=== PATIENT | female | born 1980 ===

== ENCOUNTER 2023-03-12 17:12 | Inpatient (IN) | payer BC ==
[~2023-03-12] VITALS: Ht 170.2 cm; Wt 90.9 kg
[2023-03-19] VITALS (39 sets, daily range): BP systolic 98–150; BP diastolic 53–88; PULSE 67–93; TEMP 98–98.6
[2023-03-19] MEDS ORDERED: PRENATAL (06:53)
[2023-03-19] MEDS ORDERED: PROTONIX 40MG T40 MG PO (06:53)
[2023-03-19] MEDS ORDERED: NATURAL IRON65 MG (06:54)
[2023-03-19 07:52] LABS: HEMATOCRIT 38.8 % (37.0-47.0); HEMOGLOBIN 13.2 g/dl (12.5-16.0); MEAN CELL VOLUME 86 fl (80.0-100.0); MEAN CORPUSCULAR HEMOGLOBIN 29 pg (27-31); MEAN CORPUSCULAR HGB CONC 34 g/dl (33.0-37.0); MEAN PLATELET VOLUME 10.1 fl (7.4-10.4); PLATELET COUNT 229 K/mm3 (130-400); RED BLOOD COUNT 4.53 M/mm3 (4.10-5.30); REDCELL DISTRIBUTION WIDTH-CV 15.6 % (11.5-14.5)
[2023-03-19 08:39] LABS: ANISOCYTOSIS 1+; BAND 2 % (0-10); LYMPHOCYTE 19 % (20.0-51.0); NEUTROPHILS 69 % (42.0-75.2); PLATELET ESTIMATE NORMAL (NORMAL)
--- NOTE | 2023-03-19 09:33 | NUR ---
STEFANO العراقي NOTIFIED OF DESIRE FOR EPIDURAL AT 0900. LR BOLUS INFUSING. PATIENT SITTING AT SIDE OF BED. TEST DOSE AT 0918. PATIENT TOLERATED WELL. VSS. PATIENT TO WEDGE LEFT POSITION POST EPIDURAL PLACEMENT. PATIENT HAVING PAIN RELIEF AND TOLERATING WELL. VSS. WILL CONTINUE TO MONITOR
--- NOTE | 2023-03-19 20:09 | NUR ---
183- PATIENT CALLED OUT WITH COMPLAINTS OF INCREASE IN PRESSURE. SVE COMPLETE/0. 1835- DR. HERNÁNDEZ NOTIFIED OF SVE WILL COME TO HOSPITAL FOR IMPENDING DELIVERY. 1836- PALACIOS REMOVED PERICARE PROVIDED PRACTICE PUSH PERFORMED. PATIENT PUSHING WELL WITH GOOD MOVEMENT OF HEAD. PATIENT INSTRUCTED TO STOP PUSHING UNTIL DR. HERNÁNDEZ ARRIVES. 1842- DR. HERNÁNDEZ AT BEDSIDE. BED BROKEN DOWN FOR DELIVERY. 1848- SPONTANEOUS VAGINAL DELIVERY OF VIABLE BABY GIRL. CORD CLAMPED BY DR. HERNÁNDEZ CUT BY FOB. BABY TO MOTHERS ABDOMEN. DRIED AND STIMULATED. BABY CARES ASSUMED BY Jil WONG RN. 1853- SPONTANEOUS DELIVERY OF INTACT PLACENTA THROUGH BILATERAL LABIAL TEAR. STARTED PITOCIN 333ML/HR PER PROTOCOL. DR HERNÁNDEZ BEGINS REPAIR OF BILATERAL LABIAL TEAR. 1914- RECOVERY STARTED.
--- NOTE | 2023-03-19 21:21 | NUR ---
2049- PATIENT ABLE TO LIFT BILATERAL LOWER EXTEMITIES FOR 5 SECONDS. PATIENT SITTING ON EDGE OF BED. EPIDURAL CATHETER REMOVED WITH TIP INTACT. PATIENT TOLERATED WELL. DENIES FEELING LIGHT HEADED. 2054- PATIENT AMBULATORY TO RESTROOM FOLLOWING DELIVERY. PERICARE PROVIDED. HOSPITAL GOWN CHANGED. PATIENT ABLE TO VOID WITHOUT DIFFICULTY. MESH UNDERWEAR, ICEPACK AND PAD ON. 2104- PATIENT AMBULATORY TO ROOM. PATIENT ORIENTED TO ROOM. PATIENT DENIES NEED FOR PAIN MEDICATION. QUESTIONS ENCOURAGED AND ANSWERED.
[2023-03-19] MEDS ORDERED: MOTRIN 800800 MG/TAB PO (21:36)
[2023-03-20 02:33] VITALS: BP 123/78; PULSE 71
[2023-03-20 07:30] VITALS: BP 120/80; PULSE 79; TEMP 97.8
--- NOTE | 2023-03-20 09:46 | NUR ---
Initial visit; Parents thanked [employer]urry [employer] Operator Helper for offering congratulations and God's blessings for the of their daughter. Slurry Control Operator Helper thanked family for choosing our hospital.
== END 2023-03-20 20:05 | disposition home or self-care (01) | DRG 807 ==
LOC: OB 03-19 06:19 → LDR 03-19 06:19 → OB 03-20 05:38
PROVIDERS: ADMIT Obstetrics & Gynecology
PROC: 10E0XZZ Delivery of Products of Conception, External Approach (ICD-10-PCS; principal; 2023-03-19)
PROC: 0HQ9XZZ Repair Perineum Skin, External Approach (ICD-10-PCS; 2023-03-19)
PROC: 3E033VJ Introduction of Other Hormone into Peripheral Vein, Percutaneous Approach (ICD-10-PCS; 2023-03-19)
PROC: 10907ZC Drainage of Amniotic Fluid, Therapeutic from Products of Conception, Via Natural or Artificial Opening (ICD-10-PCS; 2023-03-19)
DX: O64.0XX0 Obstructed labor due to incomplete rotation of fetal head, not applicable or unspecified (principal); Z37.0 Single live birth; O75.89 Other specified complications of labor and delivery; O70.0 First degree perineal laceration during delivery; Z3A.39 39 weeks gestation of pregnancy
CPT/HCPCS: J2590; J2795; J7120